=== PATIENT | female | born 1990 | race Caucasian/White ===

== ENCOUNTER 2017-12-04 13:34 | Inpatient (IN) | payer OTHER ==
[2017-12-04] MEDS ORDERED: Acetaminophen 500 MG Tab PO ONE (14:11)
[2017-12-04] MEDS ORDERED: hydrOXYzine HCl 25 MG Tab PO PRN (16:14)
[2017-12-04] MEDS ORDERED: Carboprost Tromethamine 250 MCG/1 ML Amp IM PRN (17:16)
[2017-12-04] MEDS ORDERED: Misoprostol 400 MCG (4 X 100 MCG TAB) RECTAL PRN (17:16)
[2017-12-04] MEDS ORDERED: Sodium Chloride 0.9% 10 ML Syringe FLUSH PRN (17:16)
[2017-12-04] MEDS ORDERED: Ondansetron 4 MG/2 ML SDV IV PRN (17:16)
[2017-12-04] MEDS ORDERED: Tranexamic Acid 1,000 MG in Sodium Chloride 0.9% 100 ML IV PRN (17:16)
[2017-12-04] MEDS ORDERED: Lactated Ringers 500 ML IV ONE (17:16)
[2017-12-04] MEDS ORDERED: Lidocaine 1% 30 ML SDV INJECT PRN (17:16)
[2017-12-04] MEDS ORDERED: Methylergonovine 0.2 MG/1 ML Amp IM PRN (17:16)
--- NOTE | 2017-12-04 18:49 | PCM.PNLD ---
<Aby Verma - Last Filed: 12/04/17 18:43> Labor Progress Note - VS & Meds Vital Signs: Last Vital Signs Temp 98.4 F 12/04/17 13:40 Pulse 85 12/04/17 15:42 Resp 18 12/04/17 15:42 BP 108/69 12/04/17 15:42 Pulse Ox Active Medications: Current Medications Acetaminophen (Tylenol) 650 mg PO Q4H PRN PRN Reason: Pain (Mild 1-3) and fever Carboprost Tromethamine (Hemabate Ds) 250 mcg IM ASDIRECTED PRN PRN Reason: HEMORRHAGE Hydroxyzine HCl (Atarax) 25 mg PO DAILY PRN PRN Reason: Other Last Admin: 12/04/17 16:28 Dose: 25 mg Lactated Ringer's (Ringers, Lactated) 1,000 mls @ 125 mls/hr IV ASDIRECTED JAYY Tranexamic Acid 1,000 mg/ (Sodium Chloride) 110 mls @ 660 mls/hr IV ONETIME PRN PRN Reason: Bleeding Lidocaine HCl (Xylocaine-Mpf 1%) 10 ml INJECT ASDIRECTED PRN PRN Reason: Perineal Repair Methylergonovine Maleate (Methergine) 0.2 mg IM ASDIRECTED PRN PRN Reason: Hemorrhage Misoprostol (Cytotec) 800 mcg RECTAL ASDIRECTED PRN PRN Reason: Hemorrhage Ondansetron HCl (Zofran) 4 mg IV Q4H PRN PRN Reason: Nausea/Vomiting Sodium Chloride (Saline Flush) 10 ml FLUSH ASDIRECTED PRN PRN Reason: Keep Vein Open Discontinued Medications Acetaminophen (Tylenol Extra Strength) 1,000 mg PO ONETIME ONE Stop: 12/04/17 14:12 Last Admin: 12/04/17 14:46 Dose: 1,000 mg Lactated Ringer's (Ringers, Lactated) 500 mls @ 999 mls/min IV .BOLUS ONE Stop: 12/04/17 17:17 - Uterine Contractions Uterine Monitoring Mode: External [place] Contraction Frequency (min): x1 Contraction Duration (sec): 120 Contraction Intensity: Moderate Uterine Resting Tone: Soft - Monitoring Strip Review: Category I - Vaginal Exam Dilation (cm): 5 Effacement (Percent): 80 Station: -1 Cervical Position: Posterior Sterile Vaginal Exam Performed By: Aby Verma (AROM ) - Labor Progress (Free Text) Labor Progress: AROM at 1835 Large amount of clear fluid Patient tolerated procedure well Cervix dilated to 5 cm Cervix located posterior and to patient's left <Aiyana Carlson - Last Filed: 12/05/17 01:06> Labor Progress Note - VS & Meds Vital Signs: Last Vital Signs Temp 98.4 F 12/04/17 21:35 Pulse 66 12/04/17 22:00 Resp 20 12/04/17 22:00 BP 118/66 12/04/17 22:00 Pulse Ox 95 12/04/17 21:45 Active Medications: Current Medications Acetaminophen (Tylenol) 650 mg PO Q4H PRN PRN Reason: Pain (Mild 1-3) and fever Benzocaine/Menthol (Dermoplast Pain Relief [place]) 0 gm TOP Q4H PRN PRN Reason: Perineal comfort measures Carboprost Tromethamine (Hemabate Ds) 250 mcg IM ASDIRECTED PRN PRN Reason: HEMORRHAGE Docusate Sodium (Colace) 100 mg PO BID PRN PRN Reason: Constipation Ferrous Sulfate (Ferrous Sulfate) 325 mg PO BIDMEALS [facility] Hydroxyzine HCl (Atarax) 25 mg PO DAILY PRN PRN Reason: Other Last Admin: 12/04/17 16:28 Dose: 25 mg Lactated Ringer's (Ringers, Lactated) 1,000 mls @ 125 mls/hr IV ASDIRECTED [facility] Last Admin: 12/04/17 21:04 Dose: 125 mls/hr Tranexamic Acid 1,000 mg/ (Sodium Chloride) 110 mls @ 660 mls/hr IV ONETIME PRN PRN Reason: Bleeding Oxytocin/Sodium Chloride (Pitocin In Ns 30 Unit/500 Ml) 30 unit in 500 mls @ 2 mls/hr IV TITRATE [facility]; Protocol Last Titration: 12/05/17 00:46 Dose: 250 mls/hr Ibuprofen (Motrin) 800 mg PO Q8H PRN PRN Reason: Mild Pain or Fever Lidocaine HCl (Xylocaine-Mpf 1%) 10 ml INJECT ASDIRECTED PRN PRN Reason: Perineal Repair Methylergonovine Maleate (Methergine) 0.2 mg IM ASDIRECTED PRN PRN Reason: Hemorrhage Misoprostol (Cytotec) 800 mcg RECTAL ASDIRECTED PRN PRN Reason: Hemorrhage Ondansetron HCl (Zofran) 4 mg IV Q4H PRN PRN Reason: Nausea/Vomiting Last Admin: 12/04/17 20:30 Dose: 4 mg Prenat Multivit/Account Director/Iron/Folic Ac ( Plus Iron) 1 each PO DAILY JAYY Simethicone (Simethicone) 80 mg PO Q4H PRN PRN Reason: Gas Sodium Chloride (Saline Flush) 10 ml FLUSH ASDIRECTED PRN PRN Reason: Keep Vein Open Discontinued Medications Acetaminophen (Tylenol Extra Strength) 1,000 mg PO ONETIME ONE Stop: 12/04/17 14:12 Last Admin: 12/04/17 14:46 Dose: 1,000 mg Bupivacaine HCl/Dextrose (Marcaine 0.75% Spinal) Confirm Administered Dose 2 ml .ROUTE .STK-MED ONE Stop: 12/04/17 20:41 Epinephrine HCl (Adrenalin) Confirm Administered Dose 1 mg .ROUTE .STK-MED ONE Stop: 12/04/17 20:42 Fentanyl (Sublimaze) Confirm Administered Dose 100 mcg .ROUTE .STK-MED ONE Stop: 12/04/17 20:41 Lactated Ringer's (Ringers, Lactated) 500 mls @ 999 mls/min IV .BOLUS ONE Stop: 12/04/17 17:17 Lidocaine HCl (Xylocaine-Mpf 1%) Confirm Administered Dose 5 ml .ROUTE .STK-MED ONE Stop: 12/04/17 20:42 Sufentanil Citrate (Sufenta) Confirm Administered Dose 50 mcg .ROUTE .STK-MED ONE Stop: 12/04/17 20:42 - Labor Progress (Free Text) Labor Progress: Procedure performed under my supervision. Agree with note as scribed on my behalf by Aby Verma, MS3. -[facility] 12/05/17 0105.
[2017-12-04] MEDS: Lactated Ringers 1,000 ML IV SCH ×2 (20:18→21:04)
[2017-12-04] MEDS ORDERED: Oxytocin/Normal Saline 30 UNIT/500 ML BAG IV SCH (20:30)
[2017-12-04] MEDS ORDERED: fentaNYL 100 MCG/2 ML SDV ONE (20:40)
[2017-12-04] MEDS ORDERED: Bupivacaine 0.75%/D5W 2 ML Amp ONE (20:40)
[2017-12-04] MEDS ORDERED: EPINEPHrine 1 MG/ML SDV ONE (20:41)
--- NOTE | 2017-12-04 21:27 | PCM.PRNOTE ---
- Free Text/Narrative Note: Requested to provide analgesia to full term patient in severe pain. Upon entering the room, patient is supine in bed complaining of severe abdominal/ pelvic pain and discomfort. Procedure was discussed with patient including adverse outcomes and expectations. Pt consented to analgesia, SAB/IT. Pt placed into a sitting position. Landmarks for SAB/IT were identified and marked. Hands were washed and appropriate PPE was applied. Back was prepped with betadine x3. A sterile, transparent, fenestrated drape was applied. Excess betadine was removed. Using 3 mL of a 1% lidocaine solution, a skin wheel was placed at the L3/L4 interspace. A 24 ga (4 inch) Pencan spinal needle was inserted until positive for CSF. Negative for heme or paresthesias. Injected fentanyl 20 mcg, sufentanil 10 mcg, and 10.5 mg of a 0.75% bupivacaine solution with an epi wash. Pt was placed left lateral position for approximately 20 minutes. There were zero complications or adverse outcomes. Will continue to monitor.
--- NOTE | 2017-12-04 22:47 | HP ---
CHIEF COMPLAINT: Increasing regularity and intensity of contractions. HISTORY OF PRESENT ILLNESS: A 26-year-old, 2, para 1-0-0-1, currently at 39 and 3/7 weeks' gestation based on last menstrual period, presents to Labor and Delivery reporting contractions that have been consistent since 10:30 a.m. today. She states the contractions have gotten more forceful and closer together throughout the morning. She is feeling more uncomfortable and the contraction pains are now located in her lower back and wrap around to her lower abdomen. Contractions sometimes last as long as 2 minutes, spaced 3 to 7 minutes apart. No leakage of fluid or vaginal bleeding. She had a headache that started last night and continued into this morning, but is now relieved. No upper abdominal pain. No vaginal bleeding. movement has been good. Patient is currently being treated for bacterial vaginosis with metronidazole. Started this treatment 11/28/2017, she states she has 2 days left. HISTORY: The patient has had consistent care with Dr. Macdonald starting at 14 weeks' gestation. A 20-week ultrasound showed an anterior placenta and a single intrauterine gestation of a normal female anatomy. Blood type is A positive. GBS negative. Rubella immune. Syphilis serology nonreactive. HIV nonreactive. Hepatitis C, hepatitis B, and wet prep are negative. Glucose tolerance test has been normal. First , delivered 10/30/2015 at 39 0/7 weeks gestation. Induction of labor for premature rupture of membranes at [facility], delivered by Dr. Zabala. Male infant with scores of 8 and 9, weight of 3252 g, normal spontaneous vaginal delivery. PAST MEDICAL HISTORY: Negative for diabetes, heart disease, thyroid dysfunction, clotting disorders, and seizures. She does not use tobacco products. No alcohol use. Menarche at age 14 with menses every 30 days. PAST SURGICAL HISTORY: None. FAMILY HISTORY: Maternal grandmother and maternal great grandmother with ovarian and breast cancer. Paternal grandfather with a "rare type of leukemia. " Parents are reported to be alive and in good health. No history of twins. Family history is negative for defects, clotting disorders, seizures, and bleeding problems. 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 She has a 2-year-old son from a previous relationship. Father of the baby is Pepe Zhu, who works for [employer]. This is their first child together. CURRENT MEDICATIONS: 1. Folic acid. 2. vitamins. 3. Metronidazole 500 mg. EXPOSURE MEDICATIONS: Metronidazole. ALLERGIES: No known allergies. REVIEW OF SYSTEMS: No headache. No blurry vision. No chest pain. No shortness of breath. No fever or chills. No nausea, vomiting, diarrhea, or constipation. The patient has some mild swelling. No skin rash. PHYSICAL EXAMINATION: Vital signs: Temperature of 98.4, pulse of 88, blood pressure 113/64, respiratory rate of 18, SpO2 of 100% on room air. HEENT: Atraumatic, normocephalic. Mucosal membranes moist. Neck: Supple with no adenopathy. Heart: Regular rate and rhythm. No murmur. Lungs: Clear to auscultation bilaterally. Abdomen: Gravid, nontender. Baseline heart rate 130 beats per minute. Cervix at last cervical exam 4 cm dilated with bag of water is intact, 80% effaced, -1 station. LABORATORY: Hbg 11.5, Plt 201 ASSESSMENT: 1. 39 3/7 weeks' intrauterine based on last menstrual period with regular menstrual cycles. 2. 2, para 1-0-0-1. 3. Blood type A positive, Group B Streptococcus negative, rubella immune. 4. Bacterial vaginosis, currently being treated with metronidazole. PLAN: At this time, we are continuing to monitor mother's contractions and cervical dilation. We are anticipating an admission for labor later this afternoon with pain management, anticipating normal spontaneous vaginal delivery. The patient's questions have been answered. [facility] /[id number] Patient seen and examined. Agree with note as scribed on my behalf by Aby Verma , MS3. -[facility] 12/05/17 0110 MTDJenae
[2017-12-05] MEDS ORDERED: Simethicone 80 MG Tab.Chew PO PRN (00:45)
[2017-12-05] MEDS ORDERED: Benzocaine/Menthol 20%-0.5% Spray 56 GM Canister TOP PRN (00:45)
--- NOTE | 2017-12-05 01:41 | DEL ---
DATE: 12/05/2017 PRE-PROCEDURE DIAGNOSES: 1. A 39 and 3/7 weeks' intrauterine , based on last menstrual period with regular menstrual cycles. 2. 2, para 1-0-0-1. 3. Artificial rupture of membranes with clear amniotic fluid. 4. Bacterial vaginosis, currently treated with metronidazole. 5. Blood type A positive. 6. Group B Streptococcus negative. 7. Rubella immune. 8. Anemia of . POSTPROCEDURE DIAGNOSES: 1. A 39 and 4/7 weeks' intrauterine , based on last menstrual period with regular menstrual cycles. 2. 2, para 2-0-0-2. 3. Artificial rupture of membranes with clear amniotic fluid. 4. Bacterial vaginosis, currently treated with metronidazole. 5. Blood type A positive. 6. Group B Streptococcus negative. 7. Rubella immune. 8. Delivery of viable female infant. 9. Anemia of . BRIEF HISTORY: A 26-year-old female, with the above-listed diagnoses, presented to the hospital with increasing frequency and intensity of contractions. She was admitted for labor when she reached approximately 4 cm dilation, artificial rupture of membranes at 5 cm dilation. She had an intrathecal for pain management and Pitocin for labor augmentation. Labor was 8 hours. PROCEDURE IN DETAIL: With the patient in dorsal lithotomy position, she delivered a viable female over intact perineum at 0010 12/05/17. Baby in CHRISTIAN position with loose nuchal cord, however coming too fast to reduce it until after the body was delivered. was dried and stimulated. Mouth and nose were bulb suctioned. Baby placed on mother's abdomen. After 1 minute delay, umbilical cord was doubly clamped and then cut by father of the baby. Cord blood sample was obtained. Second stage of labor was 10 minutes. Placenta was delivered via gentle cord traction and concomitant uterine massage. Third stage of labor was 20 minutes. Labia and vagina were inspected, there were no lacerations requiring repair. There were few labial and perineal skid orellana. Uterus was firming with IV Pitocin and fundal massage. Few clots were expressed from uterus after placenta was delivered. The patient tolerated the procedure well. ESTIMATED BLOOD LOSS: 200 mL. COMPLICATIONS: None. FINDINGS: Viable female , scores of 8 and 9, weight 3560 g, 7 pounds 14 ounces. DISPOSITION: Mother and baby are in the room at this time with father of the baby and family. [facility] /[id number] Delivery performed personally, placenta delivery by Aby Verma, MS3 under my direct supervision. Agree with procedure note as scribed on my belief by Aby Verma MS3. -[facility] 12/05/17 0838. MTDD
[2017-12-05] MEDS: Ibuprofen 800 MG Tab PO PRN ×3 (01:48→18:32)
[2017-12-05] MEDS: Docusate Sodium 100 MG Cap PO PRN ×2 (01:49→08:39)
[2017-12-05] MEDS: Prenatal Multivitamin with Calcium/Folic Acid/Iron Tab PO SCH (08:38)
[2017-12-05] MEDS: Ferrous Sulfate 325 MG Tab PO SCH ×2 (08:38→18:32)
[2017-12-05] MEDS ORDERED: fentaNYL 100 MCG/2 ML SDV ITHECAL ONE (11:11)
[2017-12-05] MEDS ORDERED: Bupivacaine 0.75%/D5W 2 ML Amp ONE (11:11)
[2017-12-05] MEDS ORDERED: EPINEPHrine 1 MG/ML SDV ONE (11:11)
[2017-12-05] MEDS: Acetaminophen 325 MG Tab PO PRN ×3 (12:03→21:25)
[2017-12-06] MEDS: Ibuprofen 800 MG Tab PO PRN (03:25)
--- NOTE | 2017-12-06 07:07 | DISCH ---
ADMISSION DIAGNOSES: 1. 39 and 3/7 weeks' intrauterine based on last menstrual period with regular menstrual cycles. 2. 2, para 1-0-0-1. 3. Blood type A positive, group B strep negative, rubella immune. 4. Bacterial vaginosis, currently being treated with metronidazole. DISCHARGE DIAGNOSES: 1. 39 and 4/7 weeks' gestation by last menstrual period. 2. 2, now para 2-0-0-2. 3. Blood type A positive, group B strep negative, rubella immune. 4. AROM and Pitocin augmentation of labor 5. Normal spontaneous delivery of female infant over intact perineum. BRIEF HISTORY: This is a 26-year-old female who presented to the hospital with one- day history of inconsistent contractions that became more regular prior to presentation. Artificial rupture of membranes at 1835 on 12/05/17, Pitocin augmentation. Mother pushed for 10 minutes and delivered a viable female infant over intact perineum. HOSPITAL COURSE: The patient's labor was augmented with Pitocin after artificial rupture of membranes. The patient received intrathecal for pain control, and after reaching 10 cm dilation, pushed for 10 minutes, delivered female with scores of 8 and 9 and weight of 3560 g over an intact perineum with labial and perineal very superfical orellana. Since delivery, mother has been ambulating, tolerating a regular diet, and voiding without complication. She has had a bowel movement as well. She is not having a headache, vision changes, upper abdominal pain, not feeling lightheaded of fevers, chills, sore throat, or cough. DISCHARGE CONDITION: Good. PHYSICAL EXAMINATION: Vital Signs: 98.4 F, HR 80, BP 115/72, Respirations 16 on Room Air Heart: Regular without obvious murmurs. Lungs: Clear to auscultation bilaterally. Abdomen: Soft and nontender. Fundus is firm above the umbilicus. Extremities: No edema, erythema, or tenderness noted. LABORATORY DATA: Discharge hemoglobin 11.5, hematocrit 36.0 and platelets pending. Admission hemoglobin 11.5, platelets 201. DISPOSITION: Home with family. MEDICATIONS: 1. Ibuprofen 600 mg every 6 hours as needed for pain. 2. Acetaminophen 650 mg every 6 hours as needed for pain. 3. Iron 325 mg twice daily. 4. Colace 100 mg twice daily as needed for constipation. INSTRUCTIONS: The patient is to have a 6-week followup with Dr. Macdonald. During this 6 weeks before her exam, she should not lift anything over 20 pounds or anything heavier than the baby + carrier. The patient needs to be on pelvic rest for the 6 weeks. Her baby has a discharge followup with Dr. Macdonald on , 12/08/2017. Routine vaginal delivery instructions are provided. All the patient's questions were answered. MOD /[id number] Patient seen and examined. Agree with note as scribed on my behalf by Aby Verma , MS3. -[facility] 12/19/173. CRISS
[2017-12-06] MEDS: Ferrous Sulfate 325 MG Tab PO SCH (09:07)
[2017-12-06] MEDS: Docusate Sodium 100 MG Cap PO PRN (09:07)
[2017-12-06] MEDS: Prenatal Multivitamin with Calcium/Folic Acid/Iron Tab PO SCH (09:07)
[2017-12-06] MEDS: Acetaminophen 325 MG Tab PO PRN (09:07)
== END 2017-12-06 10:40 | disposition home or self-care (01) | DRG 774 ==
LOC: DL.OBCHECK 13:34 → DL.OB 18:07 → OBSVTOIN 12-05 00:10
PROVIDERS: ADMIT Family Medicine; ATTEND Family Medicine
PROC: 00HU33Z Insertion of Infusion Device into Spinal Canal, Percutaneous Approach (ICD-10-PCS; 2017-12-04)
PROC: 3E0R3BZ Introduction of Anesthetic Agent into Spinal Canal, Percutaneous Approach (ICD-10-PCS; 2017-12-04)
PROC: 10E0XZZ Delivery of Products of Conception, External Approach (ICD-10-PCS; principal; 2017-12-05)
PROC: 10907ZC Drainage of Amniotic Fluid, Therapeutic from Products of Conception, Via Natural or Artificial Opening (ICD-10-PCS; 2017-12-05)
PROC: 6A550ZT Pheresis of Cord Blood Stem Cells, Single (ICD-10-PCS; 2017-12-05)
DX: O75.3 Other infection during labor (principal); Z37.0 Single live birth; N76.0 Acute vaginitis; O99.02 Anemia complicating childbirth; D64.9 Anemia, unspecified; Z3A.39 39 weeks gestation of pregnancy
CPT/HCPCS: 36415; 51701; 59025; 59409; 85014; 85018; 85027; A9270-GY; J0171; J2405; J2590; J3010; J7120

== ENCOUNTER 2021-06-13 09:14 | Emergency (ER) | payer MEDICAID, OTHER ==
--- NOTE | 2021-06-13 10:03 | EDM.PDOC ---
ED HPI GENERAL MEDICAL PROBLEM - General Stated Complaint: 6 WEEKS / BLEEDING Time Seen by Provider: 06/13/21 09:50 Source of Information: Reports: Patient History Limitations: Reports: No Limitations - History of Present Illness INITIAL COMMENTS - FREE TEXT/NARRATIVE: This 30 yo female patient reports to the Ed due to vaginal bleeding and abdominal cramping. The patient reports she started to have some light bleeding over the past 2 days, but noticed increased bleeding this morning with increased abdominal cramping. The patient reports her bleeding had been light red up to this morning. This morning the patient reports she noticed clots of dark red blood. The patient denies any trauma or falls. This is the patient's 3rd with 2 healthy children from previous pregnancies. Duration: Day(s):, Getting Worse, Intermittent Location: Reports: Abdomen Quality: Reports: Other Severity: Moderate Improves with: Reports: None Worsens with: Reports: None Context: Reports: Other Associated Symptoms: Reports: No Other Symptoms Pelvic Pain Score (Numeric/FACES): 2 - Related Data Allergies Allergy/AdvReac Type Severity Reaction Status Date / Time No Known Allergies Allergy Verified 12/04/17 14:25 Home Meds: Home Meds Calcium Carbonate [Tums] 2 tab PO QID PRN 11/27/17 [History] Vits #93/Iron Fum/FA [ Formula Tablet] 1 tab PO DAILY 11/27/17 [History] Acetaminophen [Tylenol] 650 mg PO Q4H PRN #30 tablet 12/05/17 [Rx] Docusate Sodium [Colace] 100 mg PO BID PRN #60 cap 12/05/17 [Rx] Ibuprofen [IJD: Ibuprofen] 600 mg PO Q6H PRN #30 tablet 12/05/17 [Rx] Past Medical History - Past Health History Medical/Surgical History: Denies Medical/Surgical History [employer] History: Reports: Social & Family History - Family History Family Medical History: No Pertinent Family History - Tobacco Use Tobacco Use Status *Q: Never Tobacco User - Caffeine Use Caffeine Use: Reports: Coffee - Recreational Drug Use Recreational Drug Use: No ED ROS GENERAL - Review of Systems Review Of Systems: Comprehensive ROS is negative, except as noted in HPI. ED EXAM - Physical Exam Exam: See Below Exam Limited By: No Limitations General Appearance: Alert, WD/WN, Anxious, Mild Distress Eye Exam: Bilateral Eye: EOMI, Normal Inspection, PERRL Ears: Normal External Exam, Normal Canal, Hearing Grossly Normal, Normal TMs Nose: Normal Inspection, Normal Mucosa, No Blood Throat/Mouth: Normal Inspection, Normal Lips, Normal Teeth, Normal Gums, Normal Oropharynx, Normal Voice, No Airway Compromise Head: Atraumatic, Normocephalic Neck: Normal Inspection, Supple, Non-Tender, Full Range of Motion Respiratory/Chest: No Respiratory Distress, Lungs Clear, Normal Breath Sounds, No Accessory Muscle Use, Chest Non-Tender Cardiovascular: Normal Peripheral Pulses, Regular Rate, Rhythm, No Edema, No Gallop, No JVD, No Murmur, No Rub GI/Abdominal Exam: Normal Bowel Sounds, Soft, Non-Tender, No Organomegaly, No Distention, No Abnormal Bruit, No Mass Rectal Exam: Deferred Back Exam: Normal Inspection, Full Range of Motion, NT Extremities: Normal Inspection, Normal Range of Motion, Non-Tender, Normal Capillary Refill, No Pedal Edema Neurological: Alert, Oriented, CN II-XII Intact, Normal Cognition, Normal Gait, Normal Reflexes, No Motor/Sensory Deficits Psychiatric: Normal Affect, Normal Mood Skin Exam: Warm, Dry, Intact, Normal Color, No Rash Lymphatic: No Adenopathy Course - Vital Signs Last Recorded V/S: Last Vital Signs Temp 98.2 F 06/13/21 09:37 Pulse 82 06/13/21 09:37 Resp 18 06/13/21 09:37 BP 108/70 06/13/21 09:37 Pulse Ox 97 06/13/21 09:37 - Orders/Labs/Meds Orders: Active Orders 24 hr Category Date Time Status OB Ltd 1 or More Fetus [US] Urgent Exams 06/13/21 10:25 Ordered OB Transvaginal [US] Urgent Exams 06/13/21 10:25 Ordered Labs: Laboratory Tests 06/13/21 06/13/21 06/13/21 Range/Units 09:39 09:39 09:39 WBC 6.5 (5.0-10.0) 10^3/uL RBC 4.56 (4.2-5.4) 10^6/uL Hgb 13.9 D (12.0-16.0) g/dL Hct 41.8 (37.0-47.0) % MCV 91.7 D (80-100) fL MCH 30.5 (27.0-34.0) pg MCHC 33.3 (33.0-35.0) g/dL Plt Count 228 (150-450) 10^3/uL Neut % (Auto) 66.3 (42.2-75.2) % Lymph % (Auto) 24.6 (20.5-50.1) % Patrick % (Auto) 7.3 (2-8) % Eos % (Auto) 1.5 (1.0-3.0) % Baso % (Auto) 0.3 (0.0-1.0) % Sodium 141 (136-145) mmol/L Potassium 4.3 (3.5-5.1) mmol/L Chloride 105 (98-107) mmol/L Carbon Dioxide 27 (21-32) mmol/L Anion Gap 13.3 H (7-13) mEq/L BUN 11 (7-18) mg/dL Creatinine 0.64 (0.55-1.02) mg/dL Est Cr Clr Drug Dosing 127.26 mL/min Estimated GFR (MDRD) > 60 BUN/Creatinine Ratio 17.2 (No establ ref range) Glucose 97 (70-99) mg/dL Calcium 8.7 (8.5-10.1) mg/dL Total Bilirubin 0.4 (0.2-1.0) mg/dL AST 12 L (15-37) U/L ALT 26 (14-59) U/L Alkaline Phosphatase 69 (46-116) U/L Total Protein 7.3 (6.4-8.2) g/dL Albumin 3.7 (3.4-5.0) g/dL Globulin 3.6 Albumin/Globulin Ratio 1.0 HCG, Quant 4432 H (0-6) mIU/mL Departure - Departure Time of Disposition: 10:56 Disposition: Home, Self-Care 01 Condition: Fair Clinical Impression: Spontaneous miscarriage - Discharge Information *PRESCRIPTION DRUG MONITORING PROGRAM REVIEWED*: Not Applicable *COPY OF PRESCRIPTION DRUG MONITORING REPORT IN PATIENT EVAN: Not Applicable Forms: ED Department Discharge Care Plan Goals: The patient and her were advised of the examination, lab and ultrasound results during the visit. The patient was encouraged to continue to monitor for any additional symptoms or further concerns. If the patient has any additional symptoms or concerns, the patient should either return to the emergency department or visit her primary care facility. Sepsis Event Note (ED) - Evaluation Sepsis Screening Result: No Definite Risk - Focused Exam Vital Signs: Vital Signs Temp Pulse Resp BP Pulse Ox 06/13/21 09:37 98.2 F 82 18 108/70 97 - My Orders Last 24 Hours: My Active Orders 06/13/21 10:25 OB Ltd 1 or More Fetus [US] Urgent OB Transvaginal [US] Urgent - Assessment/Plan Last 24 Hours: My Active Orders 06/13/21 10:25 OB Ltd 1 or More Fetus [US] Urgent OB Transvaginal [US] Urgent
[2021-06-13 10:07] LABS: ANION GAP 13.3 mEq/L (7-13); CHLORIDE,CL 105 mmol/L (98-107); SODIUM,NA 141 mmol/L (136-145)
--- NOTE | 2021-06-13 11:33 | US ---
PROCEDURE INFORMATION: Exam: US , Limited Exam date and time: 06/13/2021 10:38 AM Age: 30 years old Clinical indication: Lmp or gestational age (in weeks): 6 w 5 d; Other: Vaginal bleeding, lower abd cramping; Additional info: Vaginal bleeding, lower abdominal cramping TECHNIQUE: Imaging protocol: Real-time ultrasound of the maternal uterus with image documentation. Exam focused on the clinical indication. COMPARISON: No relevant prior studies available. FINDINGS: Gestation: Normal appearing uterus measuring 9.9 cm long. No intrauterine gestational sac or fluid collection. The endometrial stripe is smooth, symmetric and trilaminar and measures up to 0.8 cm. No extra uterine fluid collection. IMPRESSION: Normal uterus. Negative for .
--- NOTE | 2021-06-15 11:27 | US ---
EXAMINATION: OB Transvaginal SEX: Female AGE: 30 years CLINICAL HISTORY: 30-year-old "gravid" female (LMP 27 April 2021; serum hCG 4,000) who presents now with lower abdominal cramping and vaginal bleeding. Interpretation: Negative exam. 1. Midline uterus is normal anatomic configuration with smooth contour and symmetric normal myometrial "mantle." Normal central endometrial stripe that measures 7.4 mm diameter. No myometrial fibroid mass lesion. 2. No intrauterine gestational sac or pole. No heart beat. 3. No adnexal mass lesion or extrauterine gestational sac. 4. Neither ovary defined but there is a small amount fluid in the dependent cul-de-sac. Recent cyst rupture?
== END 2021-06-13 11:01 | disposition home or self-care (01) ==
LOC: DL.ED 09:14
DX: O03.9 Complete or unspecified spontaneous abortion without complication (principal)
CPT/HCPCS: 36415; 76815; 76817; 80053; 84702; 85025; 99284-25

== ENCOUNTER 2023-07-12 00:06 | Inpatient (IN) | payer OTHER ==
[~2023-07-12 00:06] MED LIST: Acetaminophen 325 MG Tab PO PRN; Carboprost Tromethamine 250 MCG/1 ML Amp IM PRN; Lactated Ringers 1,000 ML IV ONE; Lidocaine 1% 30 ML SDV INJECT ONE; Methylergonovine 0.2 MG/1 ML Amp IM PRN; Misoprostol 25 MCG (1/4 of 100 MCG) Tab VAG SCH; Misoprostol 400 MCG (4 X 100 MCG TAB) RECTAL PRN; Misoprostol 50 MCG (1/2 of 100 MCG) Tab VAG SCH; Ondansetron 4 MG/2 ML SDV IVPUSH PRN; Oxytocin/Normal Saline 30 UNIT/500 ML BAG IV SCH; Sodium Chloride 0.9% 10 ML Syringe FLUSH PRN; Tranexamic Acid 1,000 MG in Sodium Chloride 0.9% 100 ML IV PRN; fentaNYL 100 MCG/2 ML SDV IVPUSH PRN
[2023-07-12 00:27] LABS: HEMATOCRIT 36.9 % (37.0-47.0); HEMOGLOBIN 12.3 g/dL (12.0-16.0); MEAN CORPUSCULAR HEMOGLOBIN 30.2 pg (27.0-34.0); MEAN CORPUSCULAR HGB CONC 33.3 g/dL (33.0-35.0); MEAN CORPUSCULAR VOLUME 90.7 fL (80-100); RED BLOOD CELL COUNT 4.07 10^6/uL (4.2-5.4); WHITE BLOOD CELL COUNT,WBC 8.1 10^3/uL (5.0-10.0)
[2023-07-12] MEDS: hydrOXYzine HCl 25 MG Tab PO ONE ×2 (14:00→15:57)
[2023-07-12] MEDS: Lactated Ringers 1,000 ML IV SCH ×2 (15:16→18:40)
[2023-07-12] MEDS ORDERED: fentaNYL 100 MCG/2 ML SDV ONE (15:19)
[2023-07-12] MEDS ORDERED: Bupivacaine 0.25% 10 ML SDV ONE (15:20)
[2023-07-12] MEDS ORDERED: Phenylephrine HCl In 0.9% NaCl 1 MG/10 ML Syringe IVPUSH PRN (16:00)
[2023-07-12] MEDS ORDERED: ePHEDrine 50 MG/ML SDV IVPUSH PRN (16:00)
[2023-07-12] MEDS ORDERED: Ropivacaine 200 MG in Premix Bag 1 BAG EPIDUR SCH (16:00)
[2023-07-12] MEDS ORDERED: Benzocaine/Menthol 20%-0.5% Spray 78 GM Cannister TOP PRN (20:18)
[2023-07-12] MEDS ORDERED: Sodium Chloride 0.9% 10 ML Syringe FLUSH PRN (20:18)
[2023-07-12] MEDS ORDERED: Tranexamic Acid 1,000 MG in Sodium Chloride 0.9% 100 ML IV PRN (20:18)
[2023-07-12] MEDS ORDERED: Witch Hazel Medicated Pads 100/Jar TOP PRN (20:18)
[2023-07-12] MEDS ORDERED: Simethicone 80 MG Tab.Chew PO PRN (20:18)
[2023-07-12] MEDS ORDERED: Misoprostol 400 MCG (4 X 100 MCG TAB) RECTAL PRN (20:18)
[2023-07-13] MEDS: Ibuprofen 800 MG Tab PO PRN ×3 (00:11→15:47)
[2023-07-13] MEDS: Docusate Sodium 100 MG Cap PO PRN ×2 (00:11→08:22)
[2023-07-13] MEDS: Acetaminophen 325 MG Tab PO PRN ×2 (00:56→09:58)
[2023-07-13] MEDS ORDERED: Ferrous Sulfate 325 MG Tab PO SCH (08:00)
[2023-07-13] MEDS ORDERED: Prenatal Multivitamin with Calcium/Folic Acid/Iron Tab PO SCH (09:00)
== END 2023-07-13 21:23 | disposition home or self-care (01) | DRG 807 ==
LOC: DL.OB 00:06 → OBSVTOIN 20:17 → DL.OB 20:17
PROVIDERS: ADMIT Family Medicine; ATTEND Family Medicine
PROC: 10E0XZZ Delivery of Products of Conception, External Approach (ICD-10-PCS; principal; 2023-07-12)
PROC: 3E0R3BZ Introduction of Anesthetic Agent into Spinal Canal, Percutaneous Approach (ICD-10-PCS; 2023-07-12)
PROC: 00HU33Z Insertion of Infusion Device into Spinal Canal, Percutaneous Approach (ICD-10-PCS; 2023-07-12)
PROC: 3E0P7VZ Introduction of Hormone into Female Reproductive, Via Natural or Artificial Opening (ICD-10-PCS; 2023-07-12)
DX: O42.02 Full-term premature rupture of membranes, onset of labor within 24 hours of rupture (principal); Z37.0 Single live birth; O99.02 Anemia complicating childbirth; D64.9 Anemia, unspecified; Z3A.39 39 weeks gestation of pregnancy; O70.1 Second degree perineal laceration during delivery
CPT/HCPCS: 36415; 51702; 59409; 85027; A9270-GY; J2405; J2590; J2795; J7120

== ENCOUNTER 2024-12-31 23:43 | Emergency (ER) | payer OTHER ==
[2025-01-01 00:10] LABS: BASOPHILS PERCENT AUTO 0.3 % (0.0-1.0); EOSINOPHILS PERCENT AUTO 1.1 % (1.0-3.0); HEMATOCRIT 33.2 % (37.0-47.0); HEMOGLOBIN 10.4 g/dL (12.0-16.0); MEAN CORPUSCULAR HEMOGLOBIN 24.6 pg (27.0-34.0); MEAN CORPUSCULAR HGB CONC 31.3 g/dL (33.0-35.0); MEAN CORPUSCULAR VOLUME 78.7 fL (80-100); MONOCYTES PERCENT AUTO 7.4 % (2-8); NEUTROPHILS PERCENT AUTO 65.2 % (42.2-75.2); PLATELET COUNT,PLT 265 10^3/uL (150-450); RED BLOOD CELL COUNT 4.22 10^6/uL (4.2-5.4); WHITE BLOOD CELL COUNT,WBC 10.2 10^3/uL (5.0-10.0)
[2025-01-01 00:28] LABS: ALANINE AMINOTRANSFERASE,ALT 25 U/L (14-59); ALBUMIN 3.7 g/dL (3.4-5.0); ALKALINE PHOSPHATASE 74 U/L (46-116); ANION GAP 13.5 mEq/L (7-13); ASPARTATE AMNIOTRANSFERASE,AST 12 U/L (15-37); BILIRUBIN TOTAL 0.4 mg/dL (0.2-1.0); BLOOD UREA NITROGEN,BUN 15 mg/dL (7-18); BUN/CREATININE RATIO 22.1 (No establ ref range); CALCIUM 9.1 mg/dL (8.5-10.1); CARBON DIOXIDE,CO2 25 mmol/L (21-32); CHLORIDE,CL 104 mmol/L (98-107); CREATININE 0.68 mg/dL (0.55-1.02); GLUCOSE RANDOM 93 mg/dL (70-99); POTASSIUM,K 3.5 mmol/L (3.5-5.1); PROTEIN TOTAL,TP 7.3 g/dL (6.4-8.2); SODIUM,NA 139 mmol/L (136-145)
[2025-01-01 00:29] LABS: HCG QUALITATIVE,SERUM NEGATIVE (NEGATIVE)
[2025-01-01 00:33] LABS: ESTIMATED GFR 119 mL/min (>=60)
[2025-01-01] MEDS: Ketorolac 30 MG/ML SDV IVPUSH ONE (01:36)
[2025-01-01] MEDS: Morphine 4 MG/ML Syringe IM ONE (01:53)
== END 2025-01-01 02:08 | disposition home or self-care (01) ==
LOC: DL.ED 23:43
DX: N92.0 Excessive and frequent menstruation with regular cycle (principal); Z79.899 Other long term (current) drug therapy
CPT/HCPCS: 36415; 80053; 84703; 85025; 86850; 86900; 86901; 96372; 96374; 99282; 99284; A9270; J1885; J2270